=== PATIENT | male | born 1975 | race Caucasian/White ===

== ENCOUNTER 2023-11-04 13:21 | Emergency (ER) | payer OTHER, SELFPAY ==
--- NOTE | ~2023-11-04 | XR_ITS ---
EXAMINATION: XR finger 2nd RT min 2V DATE: 11/04/2023 14:02 INDICATION: Laceration with saw to the tip of the right second digit TECHNIQUE: Dorsal palmar, lateral and 2 oblique views of the left second digit were obtained COMPARISON: None FINDINGS: Bone alignment is normal. No fracture. 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 No cortical erosions. Likely benign bone island at the head of the second proximal phalanx. Soft tissues swelling at the ri t second digit which is surrounded by bandaging material. No radiopaque foreign bodies. IMPRESSION: 1. No acute osseous abnormality or radiopaque foreign bodies. Reviewed, dictated and finalized at location A.
[2023-11-04 13:29] VITALS: BP 123/70; PULSE 66; RESP 16; TEMP 37; O2SAT 100
--- NOTE | 2023-11-04 15:50 | ED_ITS ---
HPI - Extremity Injury (Upper) General Chief Complaint: Wound/Laceration Stated Complaint: R. pointer finger lac Time Seen by Provider: 11/04/23 15:49 Source: patient Mode of arrival: ambulatory Limitations: no limitations History of Present Illness HPI narrative: PATIENT CAME TO THE EMERGENCY ROOM WITH LACERATION AT THE TIP OF THE RIGHT INDEX WITH A SO. LAST TETANUS SHOT WAS THIS YEAR. HE DENIES OTHER INJURIES Related Data Allergies Allergy/AdvReac Type Severity Reaction Status Date / Time BEE STINGS Allergy Mild Uncoded 08/22/08 11:17 Review of Systems Review of Systems: All systems reviewed & are unremarkable except as noted in HPI and below Exam Narrative: GENERAL APPEARANCE: WELL-DEVELOPED, WELL-NOURISHED SKIN: NORMAL COLOR VASCULAR: NORMAL PERIPHERAL PULSES, NORMAL CAPILLARY REFILL. MUSCULOSKELETAL: RIGHT INDEX SHOWED 1 CM LACERATION, SUBCUTANEOUS, FLAP, NO ACTIVE BLEEDING. CLEAN. NEUROLOGIC: ALERT AND ORIENTED ?3, Course Vital Signs Vital signs: Vital Signs Temperature 37.0 C 11/04/23 13:29 Pulse Rate 66 11/04/23 13:29 Respiratory Rate 16 11/04/23 13:29 Blood Pressure 123/70 11/04/23 13:29 Pulse Oximetry 100 11/04/23 13:29 Oxygen Delivery Room Air 11/04/23 13:29 Temperature 37.0 C 11/04/23 13:29 Pulse Rate 66 11/04/23 13:29 Respiratory Rate 16 11/04/23 13:29 Blood Pressure 123/70 11/04/23 13:29 Pulse Oximetry 100 11/04/23 13:29 Oxygen Delivery Room Air 11/04/23 13:29 MDM - Extremity Injury (Upper) Imaging Data Radiologist's impression: Impressions Finger X-Ray 11/04/23 14:21 IMPRESSION: 1. No acute osseous abnormality or radiopaque foreign bodies. Critical Care Time Critical Care Time Critical Care Time: No Discharge Plan Discharge Clinical Impression: Finger laceration Patient Disposition: Home, Self-Care Condition: Stable Instructions: Antibiotic Form, Finger Laceration (ED), Steristrips (ED) Additional Instructions: RETURN IF SYMPTOMS ARE WORSENING , CALL YOUR FAMILY PHYSICIAN FOR APPOINTMENT, TAKE TYLENOL NEEDED FOR ACHES AND PAIN, CONTINUE HOME MEDICATIONS. Prescriptions: New cephalexin 500 mg tablet 500 mg PO Q6H 7 Days Qty: 28 0RF Follow-up/Referrals: PHYSICIAN,[employer] ATTENDANT [Primary Care Provider] - Bebeto Buenrostro MD [Physician] - 11/07/23
--- NOTE | 2023-11-04 16:01 | PC.NURSE ---
RN spoke with pt concerning tetanus vaccine. Pt voices he will refuse, discussed benefits & risk with pt. Pt continue to refuse. Dr. Bradford informed
[2023-11-04] MEDS: NEOMYCIN/POLYMYXIN/BACITRACIN OINTMENT 15 GM TUBE 1 APPLIC TOPICAL (17:57)
[2023-11-04] MEDS: CEPHALEXIN 500 MG CAPSULE PO (17:57)
[2023-11-04 18:51] VITALS: BP 135/88; PULSE 77; RESP 18; TEMP 36.8; O2SAT 98
== END 2023-11-04 18:53 | disposition home or self-care (01) ==
PROVIDERS: Emergency Provider Emergency Medicine
DX: S61.210A Laceration without foreign body of right index finger without damage to nail, initial encounter (principal); W27.0XXA Contact with workbench tool, initial encounter
CPT/HCPCS: 73140; 99283; A9270